=== PATIENT | female | born 1950 | race Caucasian/White ===

== ENCOUNTER 2020-01-30 11:40 | Emergency (ER) | payer MEDICARE, OTHER ==
[~2020-01-30] VITALS: Ht 167.7 cm; Wt 55.7 kg
[~2020-01-30 11:40] MED LIST: AMIT25TA9 PO; CIPR500S2 PO; CYCL10TA9 PO; ETOD200C9 PO; GABA600T2 PO; IBUP-15 PO; NAPR-248 PO; NITR-65 PO; PHEN200T27 PO; ZOLM5TAB8 PO; [UNRECOGNIZED DRUG - CODE] PO
[2020-01-30] MEDS ORDERED: NS IV 1000 ML 1,000 ML IV SCH (11:57)
[2020-01-30 12:10] LABS: BILIRUBIN,URINE NEGATIVE (NEGATIVE); CLARITY,URINE CLOUDY; COLOR,URINE YELLOW; GLUCOSE, URINE (UA) NEGATIVE (NEGATIVE); KETONES,URINE NEGATIVE (NEGATIVE); LEUKOCYTE ESTERASE ,URINE 3+ (NEGATIVE); NITRITE,URINE NEGATIVE (NEGATIVE); PROTEIN,URINE 1+ (NEGATIVE)
[2020-01-30 12:17] LABS: BACTERIA,URINE LARGE /HPF; WBC,URINE TNTC /HPF
--- NOTE | 2020-01-30 12:20 | ED GU-Female ---
General Chief Complaint: - Urinary Stated Complaint: BLOOD IN URINE;UTI;DIZZINESS;DEHYDRATION History of Present Illness Date Seen by Provider: Jan 30, 2020 Time Seen by Provider: 11:45 Initial Comments 69-year-old female presents for generalized weakness, hematuria, dizziness and dehydration. She was seen earlier today by her general surgeon at [facility], she had a colostomy placed approximately 2 weeks ago. He was concerned with her weakness and wanted to admit her to the hospital, patient refused he admitted at [facility] because her family's to far away. She reports being diagnosed with a UTI last week, she took antibiotics which she finished 2 days ago. She is continuing to have dark urine and noting blood in it. She self- caths, for the last 20 years, due to radiation from ovarian cancer. She reports nausea for 4-5 days, last vomited 2 days ago. No fevers or cough. Timing/Duration: getting worse, intermittent Severity/Quality: mild Location: suprapubic Radiation: none Associated Symptoms: No abdominal pain, No fever/chills, No loss of bladder control, No lower back pain; nausea/vomiting Allergies and Home Medications Allergies Coded Allergies: Penicillins (Unverified Allergy, FAINTING, 05/21/11) Home Medications Ciprofloxacin 500 Mg/5 Ml Selene.mc.rec, 500 MG PO BID, (Reported) Patient Home Medication List Home Medication List Reviewed: Yes Review of Systems Review of Systems Constitutional: see HPI, weakness Respiratory: no symptoms reported, see HPI; No cough Cardiovascular: no symptoms reported, see HPI; No chest pain Gastrointestinal: No loss of appetite; nausea, vomiting (2 days ago, has been eating and drinking) Genitourinary: see HPI, dysuria, hematuria Skin: no symptoms reported, see HPI All Other Systemes Reviewed Negative Unless Noted: Yes Past Avbphfr-Mkcmoo-Hgivnl Hx Past Med/Social Hx: Reviewed Nursing Past Med/Soc Hx Patient Social History Alcohol Use: Denies Use Recreational Drug Use: No 2nd Hand Smoke Exposure: No Recent Foreign Travel: No Contact w/Someone Who Travel: No Past Medical History Abdominal, Appendectomy, Gallbladder, Hysterectomy, Tubal Ligation Respiratory: No Cardiac: Yes Neurological: Yes Headaches /Migraines Reproductive Disorders: No Sexually Transmitted Disease: No Genitourinary: Yes UTI-Chronic Gastrointestinal: Yes (HIATAL HERNIA) Abdominal Hernia Musculoskeletal: Yes (OSTEOPENIA) Endocrine: No HEENT: No Cancer: Yes Cervical Did You Recieve Any Treatments: Yes What Type of Treatment Did You: Radiation RADIATION IMPLANT Psychosocial: No Integumentary: No Blood Disorders: No Adverse Reaction/Blood Tranf: No Physical Exam Vital Signs Vital Signs - First Documented 01/30/20 11:45 Temp 36.1 Pulse 77 Resp 20 B/P (MAP) 93/54 (67) Pulse Ox 100 O2 Delivery Room Air Capillary Refill : Height, Weight, BMI Height: '" Weight: lbs. oz. kg; BMI Method: General Appearance: WD/WN, no apparent distress (patient ambulated to the exam room with steady gait, minimal assistance needed) HEENT: PERRL/EOMI, normal ENT inspection, TMs normal, pharynx normal Neck: non-tender, full range of motion, supple, normal inspection Cardiovascular: normal peripheral pulses, regular rate, rhythm Respiratory: chest non-tender, lungs clear, normal breath sounds Gastrointestinal: normal bowel sounds, non tender, soft; No rebound, No tenderness; other (Colostomay LLQ, loose stool present in bag. ) Extremities: normal range of motion, non-tender, normal inspection Neurologic/Psychiatric: no motor/sensory deficits, alert, normal mood/affect, oriented x 3 Skin: normal color, warm/dry Progress/Results/Core Measures Suspected Sepsis SIRS Temperature: Pulse: Respiratory Rate: Laboratory Tests 01/30/20 12:00: White Blood Count 12.5H Blood Pressure / Mean: Laboratory Tests 01/30/20 12:00: Creatinine 2.03H, Platelet Count 507H, Total Bilirubin 0.5 Results/Orders Lab Results Laboratory Tests Test 01/30/20 11:50 01/30/20 12:00 Range/Units Urine Color YELLOW Urine Clarity CLOUDY Urine pH 6.0 5-9 Urine Specific Seth 1.015 L 1.016-1.022 Urine Protein 1+ H NEGATIVE Urine Glucose (UA) NEGATIVE NEGATIVE Urine Ketones NEGATIVE NEGATIVE Urine Nitrite NEGATIVE NEGATIVE Urine Bilirubin NEGATIVE NEGATIVE Urine Urobilinogen 0.2 < = 1.0 MG/DL Urine Leukocyte Esterase 3+ H NEGATIVE Urine RBC (Auto) 3+ H NEGATIVE Urine RBC 10-25 H /HPF Urine WBC TNTC H /HPF Urine Squamous Epithelial Cells NONE /HPF Urine Crystals NONE /LPF Urine Bacteria LARGE H /HPF Urine Casts NONE /LPF Urine Mucus NEGATIVE /LPF Urine Culture Indicated YES White Blood Count 12.5 H 4.3-11.0 10^3/uL Red Blood Count 5.64 H 3.80-5.11 10^6/uL Hemoglobin 15.1 11.5-16.0 g/dL Hematocrit 46 35-52 % Mean Corpuscular Volume 81 80-99 fL Mean Corpuscular Hemoglobin 27 25-34 pg Mean Corpuscular Hemoglobin Concent 33 32-36 g/dL Red Cell Distribution Width 13.2 10.0-14.5 % Platelet Count 507 H 130-400 10^3/uL Mean Platelet Volume 9.9 9.0-12.2 fL Immature Granulocyte % (Auto) 1 % Neutrophils (%) (Auto) 68 42-75 % Lymphocytes (%) (Auto) 21 12-44 % Monocytes (%) (Auto) 8 0-12 % Eosinophils (%) (Auto) 1 0-10 % Basophils (%) (Auto) 1 0-10 % Neutrophils # (Auto) 8.5 H 1.8-7.8 10^3/uL Lymphocytes # (Auto) 2.6 1.0-4.0 10^3/uL Monocytes # (Auto) 1.1 H 0.0-1.0 10^3/uL Eosinophils # (Auto) 0.2 0.0-0.3 10^3/uL Basophils # (Auto) 0.1 0.0-0.1 10^3/uL Immature Granulocyte # (Auto) 0.1 0.0-0.1 10^3/uL Sodium Level 135 135-145 MMOL/L Potassium Level 2.9 L 3.6-5.0 MMOL/L Chloride Level 103 98-107 MMOL/L Carbon Dioxide Level 17 L 21-32 MMOL/L Anion Gap 15 H 5-14 MMOL/L Blood Urea Nitrogen 21 H 7-18 MG/DL Creatinine 2.03 H 0.60-1.30 MG/DL Estimat Glomerular Filtration Rate 24 BUN/Creatinine Ratio 10 Glucose Level 130 H 70-105 MG/DL Calcium Level 9.8 8.5-10.1 MG/DL Corrected Calcium 9.4 8.5-10.1 MG/DL Total Bilirubin 0.5 0.1-1.0 MG/DL Aspartate Amino Transf (AST/SGOT) 15 5-34 U/L Alanine Aminotransferase (ALT/SGPT) 15 0-55 U/L Alkaline Phosphatase 156 H 40-136 U/L Total Protein 8.4 H 6.4-8.2 GM/DL Albumin 4.5 3.2-4.5 GM/DL My Orders Orders - PALMIRA SHANE Cbc With Automated Diff (01/30/20 11:41) Comprehensive Metabolic Panel (01/30/20 11:41) Ua Culture If Indicated (01/30/20 11:41) Ed Iv/Invasive Line Start (01/30/20 11:57) Ns Iv 1000 Ml (Sodium Chloride 0.9%) (01/30/20 11:57) Ondansetron Injection (Zofran Injectio (01/30/20 12:30) Urine Culture (01/30/20 11:50) Potassium Cl 10meq/50ml Ivpb (Kcl 10 Meq (01/30/20 12:51) Cefepime Injection (Maxipime Injection) (01/30/20 13:00) Ed Iv/Invasive Line Start (01/30/20 13:09) Ns Iv 500 Ml (Sodium Chloride 0.9%) (01/30/20 13:09) Medications Given in ED Current Medications Medications Dose Ordered Sig/Fernando Route Start Time Stop Time Status Last Admin Dose Admin Cefepime HCl 1000 mg/Sterile Water 10 ml @ 200 mls/hr ONCE ONCE IV 01/30/20 13:00 01/30/20 13:02 DC 01/30/20 13:17 200 MLS/HR Ondansetron HCl 4 mg ONCE ONCE IVP 01/30/20 12:30 01/30/20 12:31 DC 01/30/20 12:21 4 MG Sodium Chloride 500 ml @ 0 mls/hr Q0M ONCE IV 01/30/20 13:09 01/30/20 13:11 DC 01/30/20 13:23 500 MLS/HR Vital Signs/I&O 01/30/20 11:45 Temp 36.1 Pulse 77 Resp 20 B/P (MAP) 93/54 (67) Pulse Ox 100 O2 Delivery Room Air Capillary Refill : Progress Note : Time: 11:45 Progress Note Patient seen and evaluated, will obtain labs, normal saline 1 L per IV, and Zofran 4 mg for nausea. Son (patient's auto driver) is wanting to leave and have her admitted, he lives 1 hour away. Explained that she may or may not be admitted, we will not know until her labs are back. She is not febrile, B/P is 90s/60s and heart rate is 70-80. She does not meet sepsis criteria. Patient reports not cleaning her perineum prior to self-cath since she has colostomy thought no BMs meant she didn't have to clean, educated about proper cleaning. 1230 patient reports nausea improved after receiving the Zofran. B/P . No complaints. 1300 patient reports to be feeling better. Will give IV cefepime and 10 mEq of IV potassium. 1400 patient continues to report improvement in her symptoms. Discharge instructions and return precautions reviewed with the patient. Departure Impression Primary Impression: Urinary tract infection Qualified Codes: N30.01 - Acute cystitis with hematuria Disposition: HOME, SELF-CARE Condition: Improved Departure-Patient Inst. Decision time for Depature: 13:50 Referrals: SHELLY SMITH (Family) Primary Care Physician Patient Instructions: How to Care for Your Talley Catheter, Female, Urinary Tract Infection, Adult (DC) Add. Discharge Instructions: Increase water, 16 ounces every 2 hours while awake. Make sure to clean thoroughly before doing yourself catheterizations and use clean catheters. Follow-up with your urologist or primary care doctor if symptoms are not improving or worsen. You may alternate between Tylenol 650 mg and ibuprofen 600 mg every 4 hours for pain or fever. Take antibiotic as prescribed. Return to the emergency department for new, urgent health care needs. All discharge instructions reviewed with patient and/or family. Voiced understanding. Scripts Cefdinir (Cefdinir) 300 Mg Capsule 300 MG PO BID, #14 CAP 0 Refills Prov: PALMIRA SHANE 01/30/20 PALMIRA SHANE Jan 30, 2020 12:20
[2020-01-30 12:22] LABS: BASOPHILS # (AUTO) 0.1 10^3/uL (0.0-0.1); BASOPHILS % (AUTO) 1 % (0-10); EOSINOPHILS # (AUTO) 0.2 10^3/uL (0.0-0.3); EOSINOPHILS % (AUTO) 1 % (0-10); HEMATOCRIT 46 % (35-52); HEMOGLOBIN 15.1 g/dL (11.5-16.0); LYMPHOCYTES # (AUTO) 2.6 10^3/uL (1.0-4.0); LYMPHOCYTES % (AUTO) 21 % (12-44); MEAN CORPUSCULAR HEMOGLOBIN 27 pg (25-34); MEAN CORPUSCULAR HGB CONC 33 g/dL (32-36); MEAN CORPUSCULAR VOLUME 81 fL (80-99); MEAN PLATELET VOLUME 9.9 fL (9.0-12.2); MONOCYTES # (AUTO) 1.1 10^3/uL (0.0-1.0); MONOCYTES % (AUTO) 8 % (0-12); NEUTROPHILS # (AUTO) 8.5 10^3/uL (1.8-7.8); NEUTROPHILS % (AUTO) 68 % (42-75); PLATELET COUNT 507 10^3/uL (130-400); WHITE BLOOD COUNT 12.5 10^3/uL (4.3-11.0)
[2020-01-30] MEDS ORDERED: ONDANSETRON 4 MG/2 ML (SDV) Z0FRAN IVP ONE (12:30)
[2020-01-30 12:34] LABS: ALBUMIN 4.5 GM/DL (3.2-4.5); POTASSIUM 2.9 MMOL/L (3.6-5.0)
[2020-01-30 12:35] LABS: CALCIUM 9.8 MG/DL (8.5-10.1)
[2020-01-30 12:36] LABS: TOTAL PROTEIN 8.4 GM/DL (6.4-8.2)
[2020-01-30 12:38] LABS: BILIRUBIN,TOTAL 0.5 MG/DL (0.1-1.0)
[2020-01-30 12:40] LABS: CREATININE SERUM 2.03 MG/DL (0.60-1.30)
[2020-01-30] MEDS ORDERED: POTASSIUM CL 10MEQ/50ML IVPB 50 ML IV STA (12:51)
[2020-01-30] MEDS ORDERED: CEFEPIME INJECTION 1,000 MG in WATER (STERILE) FOR INJECTION 10 ML IV ONE (13:00)
[2020-01-30] MEDS ORDERED: NS IV 500 ML 500 ML IV ONE (13:09)
[2020-01-30] MEDS ORDERED: CEFD300C3 PO (13:59)
--- NOTE | 2020-01-30 14:06 | NUR ---
Pt resting in bed; denies needs at this time.
[2020-01-30 14:20] VITALS: BP 96/53
== END 2020-01-30 14:20 | disposition home or self-care (01) ==
LOC: EDUNIT# 11:40 → ER 11:44
DX: N39.0 Urinary tract infection, site not specified (principal); Z88.0 Allergy status to penicillin; Z85.41 Personal history of malignant neoplasm of cervix uteri
CPT/HCPCS: 36415; 80053; 81000; 85025; 87077; 87088; 87186